=== PATIENT | female | born 1980 | race Caucasian/White ===

== ENCOUNTER 2017-07-25 10:10 | Observation (INO) | payer OTHER ==
[~2017-07-25] VITALS: Ht 160 cm; Wt 71.7 kg
[~2017-07-25 10:10] MED LIST: CALC1TAB15 PO; DSS100 PO; FOLI1 PO; IBUP-2071 PO; PREN1TAB80 PO
[2017-07-25 10:44] LABS: HEMOGLOBIN A1C 5.5 % (4.5-6.2)
[2017-07-25] MEDS ORDERED: GLYB2.5 PO (10:47)
[2017-07-25 10:48] VITALS: BP 106/59
== END 2017-07-25 11:00 | disposition home or self-care (01) ==
LOC: 4S 10:10
PROVIDERS: ADMIT Obstetrics & Gynecology; ATTEND Obstetrics & Gynecology
DX: O09.523 Supervision of elderly multigravida, third trimester (principal); Z3A.38 38 weeks gestation of pregnancy
CPT/HCPCS: 36415; 59025; 82947; 83036; G0378

== ENCOUNTER 2017-08-06 09:35 | Observation (INO) | payer OTHER ==
[~2017-08-06] VITALS: Ht 160 cm; Wt 72.6 kg
[~2017-08-06 09:35] MED LIST changes: +GLYB2.5 PO
[2017-08-06 10:20] VITALS: BP 111/70
[2017-08-06 10:48] LABS: GLUCOMETER DEV NAME(LOC) 4S 8; GLUCOSE,POINT OF CARE 99 MG/DL (70-110)
== END 2017-08-06 13:10 | disposition home or self-care (01) ==
LOC: 4S 09:35
PROVIDERS: ADMIT Obstetrics & Gynecology; ATTEND Obstetrics & Gynecology
DX: O24.415 Gestational diabetes mellitus in pregnancy, controlled by oral hypoglycemic drugs (principal); O62.9 Abnormality of forces of labor, unspecified; O26.893 Other specified pregnancy related conditions, third trimester; R10.9 Unspecified abdominal pain; O09.523 Supervision of elderly multigravida, third trimester; Z3A.39 39 weeks gestation of pregnancy
CPT/HCPCS: 36415; 59025; 82962; 83036; G0378

== ENCOUNTER 2017-08-09 11:58 | Inpatient (IN) | payer OTHER ==
[~2017-08-09] VITALS: Ht 165.1 cm; Wt 73.0 kg
[~2017-08-09 11:58] MED LIST changes: -DSS100 PO; -IBUP-2071 PO
[2017-08-09] MEDS ORDERED: OXYTOCIN 30 UNITS/LACT RINGERS 500 ML IV ONE (12:04)
[2017-08-09] MEDS ORDERED: RINGERS SOLUTION,LACTATED 1,000 ML IV PRN (12:04)
[2017-08-09 12:15] VITALS: BP 109/71
[2017-08-09] MEDS ORDERED: METOCLOPRAMIDE HCL 5 MG/ML 2 ML VIAL IVP PRN (12:15)
[2017-08-09] MEDS ORDERED: METHYLERGONOVINE MALEATE 0.2 MG/ML VIAL IM PRN (12:15)
[2017-08-09] MEDS ORDERED: CITRIC ACID/SODIUM CITRATE 30 ML SOLUTION UDCUP PO PRN (12:15)
[2017-08-09] MEDS ORDERED: FentaNYL CITRATE-PF 100 MCG/2 ML VIAL IVP PRN (12:15)
[2017-08-09] MEDS ORDERED: LIDOCAINE HCL/PF 1% 30 ML VIAL INJ PRN (12:15)
[2017-08-09 13:06] LABS: BASOPHILS % (AUTO) 0.3 % (0.0-2.0); EOSINOPHILS % (AUTO) 1.5 % (1.0-6.0); HEMOGLOBIN 12.1 g/dL (12.0-16.0); LYMPHOCYTES # (AUTO) 1.6 K/uL (1.0-4.8); LYMPHOCYTES % (AUTO) 22.9 % (22.0-44.0); MEAN CORPUSCULAR HEMOGLOBIN 28.6 pg (26.0-34.0); MEAN CORPUSCULAR HGB CONC 33.8 G/dL (31.0-37.0); MEAN CORPUSCULAR VOLUME 85 fL (80-100); MONOCYTES # (AUTO) 0.6 K/uL (0.1-1.0); MONOCYTES % (AUTO) 8.6 % (2.0-9.0); NEUTROPHILS # (AUTO) 4.7 K/uL (1.8-7.7); NEUTROPHILS % (AUTO) 66.7 % (40.0-70.0); PLATELET COUNT (AUTO) 199 K/uL (150-450); RED BLOOD CELL COUNT(AUTO) 4.24 MIL/uL (4.00-5.20); RED CELL DISTRIBUTION WIDTH 14.9 % (11.5-14.5)
[2017-08-09] MEDS ORDERED: DINOPROSTONE 10 MG VAGINAL SUPPOSITORY VG ONE (14:00)
[2017-08-09] MEDS ORDERED: AMPICILLIN SODIUM 2 GM/NS 100 ML IV ONE (14:00)
[2017-08-09] MEDS: AMPICILLIN SODIUM 1 GM/NS 50 ML IV SCH ×2 (18:59→22:27)
[2017-08-09] MEDS ORDERED: OXYGEN THERAPY IH SCH (20:00)
[2017-08-09] MEDS: RINGERS SOLUTION,LACTATED 1,000 ML IV SCH ×2 (21:12→23:35)
[2017-08-09] MEDS ORDERED: ROPIVACAINE HCL/PF 0.2% 100 ML ED ONE (22:39)
[2017-08-10] MEDS ORDERED: -PHARMACY NOTE- MISC ONE (02:00)
[2017-08-10] MEDS: AMPICILLIN SODIUM 1 GM/NS 50 ML IV SCH ×2 (02:41→06:38)
[2017-08-10] MEDS ORDERED: OXYTOCIN 30 UNITS/LACT RINGERS 500 ML IV PRN ×2 (04:35→04:38)
[2017-08-10] MEDS: RINGERS SOLUTION,LACTATED 1,000 ML IV SCH (04:52)
[2017-08-10] MEDS ORDERED: GLYCERIN/WITCH HAZEL LEAF 40 PADS JAR TP PRN (09:30)
[2017-08-10] MEDS ORDERED: BENZOCAINE 20%/MENTHOL 56 GM SPRAY CANISTER TP PRN (09:30)
[2017-08-10] MEDS ORDERED: LANOLIN 7 GM OINTMENT TP PRN (09:30)
[2017-08-10] MEDS ORDERED: ACETAMINOPHEN/CODEINE 300-30 MG TABLET PO PRN ×2 (09:30)
[2017-08-10] MEDS: IBUPROFEN 800 MG TABLET PO SCH ×3 (11:53→23:58)
[2017-08-10] MEDS: MAGNESIUM HYDROXIDE SUSPENSION 30 ML UDCUP PO SCH (21:01)
[2017-08-11] MEDS: IBUPROFEN 800 MG TABLET PO SCH ×2 (05:00→07:57)
[2017-08-11] MEDS: MAGNESIUM HYDROXIDE SUSPENSION 30 ML UDCUP PO SCH (08:27)
[2017-08-11] MEDS ORDERED: IBUP-2070 PO (09:24)
[2017-08-11] MEDS ORDERED: FERR-89 PO (09:27)
[2017-08-11] MEDS ORDERED: DSS100 PO (09:29)
== END 2017-08-11 12:10 | disposition home or self-care (01) | DRG 775 ==
LOC: OBSVTOIN 11:58 → 4S 11:58
PROVIDERS: ADMIT Obstetrics & Gynecology; ATTEND Obstetrics & Gynecology
PROC: 10E0XZZ Delivery of Products of Conception, External Approach (ICD-10-PCS; principal; 2017-08-10)
PROC: 0W8NXZZ Division of Female Perineum, External Approach (ICD-10-PCS; 2017-08-10)
PROC: 3E0R3BZ Introduction of Anesthetic Agent into Spinal Canal, Percutaneous Approach (ICD-10-PCS; 2017-08-10)
PROC: 00HU33Z Insertion of Infusion Device into Spinal Canal, Percutaneous Approach (ICD-10-PCS; 2017-08-10)
DX: O69.81X0 Labor and delivery complicated by cord around neck, without compression, not applicable or unspecified (principal); Z37.0 Single live birth; Z3A.40 40 weeks gestation of pregnancy
CPT/HCPCS: 82947; 83036; 86850; 86900; 86901; J0290; J2590; J2795; J7120